=== PATIENT | male | born 1990 | race American Indian/Alaskan Native ===

== ENCOUNTER 2021-11-03 08:18 | Emergency (ER) | payer OTHER ==
[2021-11-03] MEDS ORDERED: DICYCLOMINE 20 MG TAB PO ONE (11:55)
[2021-11-03] MEDS ORDERED: ONDANSETRON 4 MG/2 ML INJ IV ONE (11:55)
[2021-11-03] MEDS ORDERED: SODIUM CHLORIDE 0.9% 1000 ML 1,000 ML IV ONE (11:55)
--- NOTE | 2021-11-03 11:56 | Emergency Department Report ---
ED N/V/D HPI - General Chief complaint: Abdominal Pain Stated complaint: STOMACH PAIN/MIGRAINE Source: patient Mode of arrival: Ambulatory Limitations: No Limitations - History of Present Illness Initial comments: 31-year-old male presents to the ED complaining of abdominal pain x1 day after eating a salmon pasta salad. Patient states that he started having diarrhea every hour after taking Pepto-Bismol. Patient is alert and oriented x3. He states since he has the diarrhea he has had some abdominal cramping. Patient denies any abdominal cramping at present time. Patient states that he had diarrhea this morning x3. Patient denies any nausea or vomiting at present time. No acute distress noted .no ill appearance noted. Patient denies any fever or chills. MD complaint: diarrhea -: Sudden Description of Vomiting: watery Description of Diarrhea: water Associated Abdominal Pain: Yes Location: diffuse Radiation: none Severity: mild Pain Scale: 0 Quality: cramping Consistency: intermittent Improves with: rest Worsens with: bowel movement Context: other (After eating salmon pasta) Associated Symptoms: denies other symptoms - Related Data Previous Rx's Medication Instructions Recorded Last Taken Type Acetaminophen/Codeine [Tylenol 1 tab PO Q6H PRN #12 tab 11/03/21 Unknown Rx /Codeine # 3 tab] Ciprofloxacin/Ciprofloxa HCl 500 mg PO BID 5 Days #10 tab 11/03/21 Unknown Rx [Ciprofloxacin ER 500 mg Tablet] Dicyclomine [Bentyl] 20 mg PO QID 5 Days #20 tab 11/03/21 Unknown Rx Ondansetron (Nf) [Zofran TAB] 8 mg PO Q8HR PRN 3 Days #12 tablet 11/03/21 Unknown Rx Allergies Allergy/AdvReac Type Severity Reaction Status Date / Time No Known Allergies Allergy Unverified 11/03/21 08:49 ED Review of Systems ROS: Stated complaint: STOMACH PAIN/MIGRAINE Other details as noted in HPI Constitutional: denies: chills, fever Eyes: denies: eye pain, eye discharge, vision change ENT: denies: ear pain, throat pain Respiratory: denies: cough, shortness of breath, wheezing Cardiovascular: denies: chest pain, palpitations Endocrine: no symptoms reported Gastrointestinal: diarrhea. denies: abdominal pain, nausea Genitourinary: denies: urgency, dysuria Musculoskeletal: denies: back pain, joint swelling, arthralgia Skin: denies: rash, lesions Neurological: denies: headache, weakness, paresthesias Psychiatric: denies: anxiety, depression Hematological/Lymphatic: denies: easy bleeding, easy bruising ED Past Medical Hx - Medications Home Medications: Home Medications Medication Instructions Recorded Confirmed Last Taken Type Acetaminophen/Codeine [Tylenol 1 tab PO Q6H PRN #12 tab 11/03/21 Unknown Rx /Codeine # 3 tab] Ciprofloxacin/Ciprofloxa HCl 500 mg PO BID 5 Days #10 tab 11/03/21 Unknown Rx [Ciprofloxacin ER 500 mg Tablet] Dicyclomine [Bentyl] 20 mg PO QID 5 Days #20 tab 11/03/21 Unknown Rx Ondansetron (Nf) [Zofran TAB] 8 mg PO Q8HR PRN 3 Days #12 tablet 11/03/21 Unknown Rx ED Physical Exam - General Limitations: No Limitations General appearance: alert, in no apparent distress - Head Head exam: Present: atraumatic, normocephalic - Eye Eye exam: Present: normal appearance - ENT ENT exam: Present: mucous membranes moist - Neck Neck exam: Present: normal inspection - Respiratory Respiratory exam: Present: normal lung sounds bilaterally. Absent: respiratory distress - Cardiovascular Cardiovascular Exam: Present: regular rate, normal rhythm. Absent: systolic murmur, diastolic murmur, rubs, gallop - GI/Abdominal GI/Abdominal exam: Present: soft, normal bowel sounds - Rectal Rectal exam: Present: deferred - Extremities Exam Extremities exam: Present: normal inspection - Back Exam Back exam: Present: normal inspection - Neurological Exam Neurological exam: Present: alert, oriented X3 - Psychiatric Psychiatric exam: Present: normal affect, normal mood - Skin Skin exam: Present: warm, dry, intact, normal color. Absent: rash ED Course Vital Signs 11/03/21 11/03/21 11/03/21 08:49 13:55 14:22 Temperature 99.2 F 99.2 F 99.2 F Pulse Rate 105 H 88 Respiratory 18 16 Rate Blood Pressure 119/51 134/86 [Right] O2 Sat by Pulse 100 99 Oximetry ED Medical Decision Making - Lab Data Result diagrams: 11/03/21 12:18 11/03/21 12:18 - Medical Decision Making 31-year-old male presents to the ED complaining of abdominal pain x1 day after e ating a salmon pasta salad. Patient states that he started having diarrhea every hour after taking Pepto-Bismol. Patient is alert and oriented x3. He states since he has the diarrhea he has had some abdominal cramping. Patient denies any abdominal cramping at present time. Patient states that he had diarrhea this morning x3. Patient denies any nausea or vomiting at present time. No acute distress noted .no ill appearance noted. Patient denies any fever or chills. Physical examination unremarkable no tenderness noted on palpation to the abdominal area. Patient is given normal saline IV , Zofran 4 mg IV, Bentyl 20mg PO. Patient has no further diarrhea noted in the ED. at time of discharge patient heart rate was 88. Rechecked the patient is resting quietly quietly and comfortable and feeling better. I discussed the results of diagnostic study, my clinical impression and the plan for further treatment with the patient. Patient agrees with plan and discharge at this present time. All question addressed. I have given the patient instruction regarding a diagnosis ,expectation ,follow- up and return precaution. I explained to the patient that emergent condition may arise and to return to the ED for new worsen and any new persisting condition. I have explained the importance of following up with the primary care physician or referral physician listed below has instructed. The patient verbalized understanding of discharge instruction. Critical care attestation.: If time is entered above; I have spent that time in minutes in the direct care of this critically ill patient, excluding procedure time. ED Disposition Clinical Impression: Gastroenteritis, Food poisoning Disposition: 01 HOME / SELF CARE / HOMELESS Is pt being admited?: No Does the pt Need Aspirin: No Condition: Stable Instructions: Viral Gastroenteritis, Adult, Antibiotic Medicine, Adult, [id number], Food Poisoning, [id number] Additional Instructions: Take medication as prescribed Return to the ED for any worsening symptom Prescriptions: Dicyclomine [Bentyl] 20 mg PO QID 5 Days #20 tab Ciprofloxacin/Ciprofloxa HCl [Ciprofloxacin ER 500 mg Tablet] 500 mg PO BID 5 Days #10 tab Acetaminophen/Codeine [Tylenol /Codeine # 3 tab] 1 tab PO Q6H PRN #12 tab PRN Reason: Pain, Mild (1-3) Ondansetron (Nf) [Zofran TAB] 8 mg PO Q8HR PRN 3 Days #12 tablet PRN Reason: Nausea Referrals: PRIMARY CAREMD [Primary Care Provider] - 3-5 Days [facility] [Provider Group] - 3-5 Days KAMI CARROLL MD [Staff Physician] - 3-5 Days Forms: Work/School Release Form(ED) Time of Disposition: 13:59
[2021-11-03 12:39] LABS: Basophils % (Auto) 0.1 % (0.0-1.8); Eosinophils % (Auto) 0.1 % (0.0-4.3); Hematocrit 46.7 % (35.5-45.6); Hemoglobin 16.5 gm/dl (11.8-15.2); Lymphocytes # (Auto) 0.7 K/mm3 (1.2-5.4); Lymphocytes % (Auto) 4.9 % (13.4-35.0); Mean Corpuscular HGB Conc 35 % (32-34); Mean Corpuscular Volume 103 fl (84-94); Monocytes # (Auto) 1.2 K/mm3 (0.0-0.8); Monocytes % (Auto) 8.6 % (0.0-7.3); Platelet Count 195 K/mm3 (140-440); Red Blood Count 4.53 M/mm3 (3.65-5.03); Red Cell Distribution Width 12.7 % (13.2-15.2)
[2021-11-03 12:57] LABS: Alanine Aminotransferase 16 units/L (7-56); Albumin 4.1 g/dL (3.9-5); BUN/Creatinine Ratio 12; Blood Urea Nitrogen 16 mg/dL (9-20); Calcium 9.7 mg/dL (8.4-10.2); Hemolysis Index 9
[2021-11-03] MEDS ORDERED: KETOROLAC 30 MG/1 ML INJ IV ONE (13:14)
[2021-11-03 14:24] VITALS: BP 134/86
== END 2021-11-03 14:22 | disposition home or self-care (01) ==
LOC: ED 08:18
DX: K52.9 Noninfective gastroenteritis and colitis, unspecified (principal); A05.9 Bacterial foodborne intoxication, unspecified
CPT/HCPCS: 36415; 80053; 82150; 83690; 85025; 96361; 96374; 96375; 99283; J2405; J7030